=== PATIENT | male | born 1935 | race Caucasian/White ===

== ENCOUNTER 2016-11-18 18:38 | Emergency (ER) | payer OTHER ==
[~2016-11-18] VITALS: Ht 185.4 cm; Wt 98.0 kg
[~2016-11-18 18:38] MED LIST: ASPI81CH CHEW; LATA0.002 EACH EYE; LOSA100T3 PO; OMEP20TA PO
[2016-11-18 18:46] VITALS: BP 104/56; PULSE 65; RESP 16; TEMP 98.7; O2SAT 96
--- NOTE | 2016-11-18 19:23 | PD ---
HPI Chief Complaint: General Weakness Time Seen by Provider: 19:09 Travel History International Travel<30 days: No Contact w/Intl Traveler<30days: No Traveled to known affect area: No History of Present Illness HPI The patient is an 81-year-old male that has had progressive tightness and bilateral hamstrings for over a year. Despite PT prescribed by Dr. Mancini the patient has been getting worse and cannot straighten his legs. It is at the point now where he cannot walk for about 6 days. He was told by Dr. Mancini to go the emergency department. He saw a neurologist that wanted to do an MRI of the lumbosacral area but the patient has a metal plate in his foot put in 60 years ago and he cannot do an MRI. He has never had a CT of the lumbar spine. He denies any numbness, weakness in the legs. He has never seen an orthopedic physician. He states he had physical therapy once or twice a week and was given home exercises to do which he states he did. PFSH Past Medical History Arthritis: Yes Cardiovascular Problems: Yes (HTN) High Cholesterol: Yes Diminished Hearing: No Glaucoma: Yes Hypertension: Yes Tetanus Vaccination: < 5 Years Influenza Vaccination: Yes Past Surgical History Abdominal Surgery: Yes (Hernia, stomach) Social History Alcohol Use: No Tobacco Use: No Substance Use: No Allergies-Medications (Allergen,Severity, Reaction): Coded Allergies: Cephalexin (Verified Allergy, Severe, Hives, 11/18/16) Tramadol (Verified Allergy, Severe, Nausea/Vomiting, 11/18/16) HMG-CoA Reductase Inhibitors (Verified Allergy, Intermediate, MUSCLE CRAMPS, 11/18/16) Reported Meds & Prescriptions Reported Meds & Active Scripts Active Reported Latanoprost Opth Drops (Latanoprost) 0.005% Drops 1 Drop EACH EYE HS Refrigerate until opened. Losartan-Hydrochlorothiazide 100-12.5 Mg Tab 1 Tab PO DAILY Omeprazole 20 Mg Tab 20 Mg PO DAILY Aspirin 81 Mg Chew 81 Mg CHEW DAILY Review of Systems Except as stated in HPI: all other systems reviewed are Neg Physical Exam Narrative GENERAL: The patient is alert, oriented 3 in no apparent distress. His vital signs are normal. SKIN: Focused skin assessment warm/dry. HEAD: Atraumatic. Normocephalic. EYES: Pupils equal and round. No scleral icterus. No injection or drainage. ENT: No nasal bleeding or discharge. Mucous membranes pink and moist. NECK: Trachea midline. No JVD. CARDIOVASCULAR: Regular rate and rhythm. No murmur appreciated. RESPIRATORY: No accessory muscle use. Clear to auscultation. Breath sounds equal bilaterally. GASTROINTESTINAL: Abdomen soft, non-tender, nondistended. Hepatic and splenic margins not palpable. MUSCULOSKELETAL: No obvious deformities. No clubbing. No cyanosis. No edema. The patient lacks 30 and extension at the knees bilaterally. This is because of tight hamstring muscles. He has good capillary refill, pinprick and motor sensation of the feet. NEUROLOGICAL: Awake and alert. No obvious cranial nerve deficits. Motor grossly within normal limits. Normal speech. PSYCHIATRIC: Appropriate mood and affect; insight and judgment normal. Data Data Last Documented VS Vital Signs Date Time Temp Pulse Resp B/P Pulse Ox O2 Delivery O2 Flow Rate FiO2 11/18/16 21:35 59 16 132/49 97 Room Air 11/18/16 18:[address] Lumb Spine W/O Contrast (11/18/16 19:23) Complete Blood Count With Diff (11/18/16 19:25) Comprehensive Metabolic Panel (11/18/16 19:25) Urinalysis - C+S If Indicated (11/18/16 19:25) Place In Observation (11/18/16 ) Vital Signs (Adult) Q4H (11/18/16 21:25) Activity Oob With Assistance (11/18/16 21:25) Pump Servicer / Telemetry .CONTINUOUS (11/18/16 21:25) Diet Heart Healthy (11/19/16 Breakfast) Sodium Chloride 0.9% Flush (Ns Flush) (11/18/16 21:30) Sodium Chloride 0.9% Flush (Ns Flush) (11/19/16 09:00) Basic Metabolic Panel (Bmp) (11/19/16 06:00) Complete Blood Count With Diff (11/19/16 06:00) Pt Request For Service (11/18/16 21:25) Case Management Consult (11/18/16 21:25) Naloxone Inj (Narcan Inj) (11/18/16 21:30) Labs Laboratory Tests Test 11/18/16 11/18/16 19:35 20:45 White Blood Count 6.9 TH/MM3 Red Blood Count 4.06 MIL/MM3 Hemoglobin 12.6 GM/DL Hematocrit 37.0 % Mean Corpuscular Volume 91.2 FL Mean Corpuscular Hemoglobin 31.1 PG Mean Corpuscular Hemoglobin 34.1 % Concent Red Cell Distribution Width 14.3 % Platelet Count 191 TH/MM3 Mean Platelet Volume 6.9 FL Neutrophils (%) (Auto) 60.0 % Lymphocytes (%) (Auto) 22.7 % Monocytes (%) (Auto) 13.0 % Eosinophils (%) (Auto) 3.9 % Basophils (%) (Auto) 0.4 % Neutrophils # (Auto) 4.1 TH/MM3 Lymphocytes # (Auto) 1.6 TH/MM3 Monocytes # (Auto) 0.9 TH/MM3 Eosinophils # (Auto) 0.3 TH/MM3 Basophils # (Auto) 0.0 TH/MM3 CBC Comment DIFF FINAL Differential Comment Sodium Level 140 MEQ/L Potassium Level 4.2 MEQ/L Chloride Level 103 MEQ/L Carbon Dioxide Level 29.4 MEQ/L Anion Gap 8 MEQ/L Blood Urea Nitrogen 19 MG/DL Creatinine 0.80 MG/DL Estimat Glomerular Filtration 92 ML/MIN Rate Random Glucose 92 MG/DL Calcium Level 8.4 MG/DL Total Bilirubin 0.3 MG/DL Aspartate Amino Transf 21 U/L (AST/SGOT) Alanine Aminotransferase 23 U/L (ALT/SGPT) Alkaline Phosphatase 90 U/L Total Protein 6.4 GM/DL Albumin 3.3 GM/DL Urine Color YELLOW Urine Turbidity CLEAR Urine pH 5.5 Urine Specific [place] 1.018 Urine Protein NEG mg/dL Urine Glucose (UA) NEG mg/dL Urine Ketones NEG mg/dL Urine Occult Blood NEG Urine Nitrite NEG Urine Bilirubin NEG Urine Leukocyte Esterase NEG Urine RBC 0-2 /hpf Urine WBC 0-2 /hpf Urine Squamous Epithelial 0-5 /hpf Cells Urine Bacteria NONE /hpf Microscopic Urinalysis Comment CULT NOT INDICATED MDM Medical Decision Making Medical Screen Exam Complete: Yes Emergency Medical Condition: Yes Medical Record Reviewed: Yes Interpretation(s) The CT of the lumbar spine shows scoliosis and multilevel lumbar spine degenerative changes which are severe. They are associated with foraminal and spinal stenosis at all levels but, according to the radiologist, they appear chronic and no acute disc herniation is noted. There is no fracture or acute malalignment. The CBC shows a hemoglobin of 12.6 and hematocrit of 37.0 but is otherwise unremarkable. The complete metabolic profile shows a BUN of 19 and calcium 8.4 and albumin 3.3 but is otherwise normal. The urinalysis is normal. Differential Diagnosis Chronic tightening of hamstrings, herniated nucleus pulposus, electrolyte disorder Narrative Course The patient has chronic tightening of his hamstrings, so severe that he cannot walk. He cannot get to the bathroom and cannot ambulate at home. Apparently, he has failed physical therapy at his hamstrings actually got tighter when he was having physical therapy. He has never seen an orthopedic physician. I discussed the patient with Dr. Yuan and we are okay with admitting this patient to get orthopedic/rehabilitation medicine consults. The patient did not want to be admitted, he states he is okay with going home and using a wheelchair to get around his home. He is told to have Dr. Mancini get orthopedic/ rehabilitation medicine consultants to see if they can stretch the hamstrings are offer possible myofascial release so that he can straighten out his legs. Diagnosis Primary Impression: Inability to ambulate due to knee Additional Impression: Hamstring tightness of both lower extremities Perez Blanchard MD Nov 18, 2016 19:23
[2016-11-18 19:40] LABS: AUTOMATED NEUTROPHIL # 4.1 TH/MM3 (1.8-7.7); BASOPHIL % 0.4 % (0.0-2.0); EOSINOPHIL # 0.3 TH/MM3 (0-0.4); EOSINOPHIL % 3.9 % (0.0-4.0); HEMO FLAGS DIFF FINAL; LYMPH % 22.7 % (9.0-44.0); LYMPHOCYTE # 1.6 TH/MM3 (1.0-4.8); MEAN CELL VOLUME 91.2 FL (80.0-100.0); MEAN CORPUSCULAR HEMOGLOBIN 31.1 PG (27.0-34.0); MEAN CORPUSCULAR HGB CONC 34.1 % (32.0-36.0); PLATELET COUNT 191 TH/MM3 (150-450); RED BLOOD COUNT 4.06 MIL/MM3 (4.50-5.90); RED CELL DISTRIBUTION WIDTH 14.3 % (11.6-17.2); WHITE BLOOD COUNT 6.9 TH/MM3 (4.0-11.0)
[2016-11-18 19:48] LABS: CHLORIDE 103 MEQ/L (98-107); POTASSIUM 4.2 MEQ/L (3.5-5.1); SODIUM (NA) 140 MEQ/L (136-145)
[2016-11-18 19:52] LABS: ANION GAP 8 MEQ/L (5-15); BICARBONATE 29.4 MEQ/L (21.0-32.0); BLOOD UREA NITROGEN 19 MG/DL (7-18)
[2016-11-18 19:55] LABS: ALT (GPT) 23 U/L (12-78); AST (GOT) 21 U/L (15-37); GLOMERULAR FILTRATION RATE 92 ML/MIN (>89)
[2016-11-18 19:56] LABS: TOTAL BILIRUBIN ADULT 0.3 MG/DL (0.2-1.0)
[2016-11-18 19:58] LABS: ALKALINE PHOSPHATASE 90 U/L (45-117)
[2016-11-18 20:50] LABS: BLOOD, URINE NEG (NEG); GLUCOSE,URINE NEG (NEG); KETONE, URINE NEG (NEG); NITRITE,URINE NEG (NEG); PH, URINE 5.5 (5.0-8.5)
[2016-11-18 20:55] LABS: COMMENT (UR) CULT NOT INDICATED; CULTURE IF INDICATED CULT NOT INDICATED; RBC, URINE 0-2 /hpf (0-3); SQUAMOUS EPITHELIAL CELL URINE 0-5 /hpf (0-5); URINE COLOR YELLOW (YELLW/STRAW); WBC, URINE 0-2 /hpf (0-5)
--- NOTE | 2016-11-18 20:57 | RADHPO ---
EXAM DATE/TIME: 11/18/2016 20:08 [facility] COMPARISON: No previous studies available for comparison. INDICATIONS : Weakness in bilateral lower extremities. RADIATION DOSE: 40.08 CTDIvol (mGy) MEDICAL HISTORY : Hypertension. SURGICAL HISTORY : None. ENCOUNTER: Initial ACUITY: 1 day PAIN SCALE: 2/10 LOCATION: [facility] TECHNIQUE: Volumetric scanning of the lumbar spine was performed. Multiplanar reconstructions in the sagittal, coronal and oblique axial planes were performed. Using automated exposure control and adjustment of the mA and/or kV according to patient size, radiation dose was kept as low as reasonably achievable t o obtain optimal diagnostic quality images. FINDINGS: There is moderate dextroconvex curvature of the lumbar spine centered around L4. No fracture or acute appearing malalignment demonstrated. T12-L1: Severe disc space narrowing with broad disc osteophyte complex and moderate bilateral facet osteoarth ritis. There is moderate bilateral foraminal stenosis. L1-L2: Severe disc space narrowing and vacuum phenomena. Circumferential osseous ridging and small, broad/di ffuse but especially lateral disc protrusion. There is severe bilateral foraminal stenosis. L2-L3: Severe disc space narrowing with vacuum phenomena. Diffuse osseous ridging and severe bilateral facet osteoarthritis. There is moderate to severe right and severe left foraminal stenosis. There is moder ate spinal stenosis. L3-L4: Severe disc space narrowing with vacuum phenomena and diffuse disc osteophyte complex with severe marcy ateral facet osteoarthritis. There is moderate to severe right and severe left foraminal stenosis. Th ere is moderate to severe spinal stenosis. L4-L5: Moderate to severe disc space narrowing with vacuum phenomena, especially towards the left. Diffuse d isc osteophyte complex and severe bilateral facet osteoarthritis. There is moderate to severe right a nd severe left foraminal stenosis. There is moderate foraminal stenosis, left lateral recess more so than right. The left L5 nerve root appears swollen. L5-S1: Moderate disc space narrowing with vacuum phenomena. A couple millimeters of degenerative anterolisth esis are noted. There is a small, broad disc protrusion that appears chronic. There is severe right a nd moderate to severe left foraminal stenosis. CONCLUSION: Scoliosis and multilevel lumbar spine degenerative changes as above. Although quite severe and with a ssociated foraminal and spinal stenosis at essentially all levels, the findings appear chronic and I don't clearly see an acute disc herniation. Also no evidence of fracture or acute malalignment. Ken Mark MD on November 18, 2016 at 20:48 Board Certified Radiologist. This report was verified electronically.
[2016-11-18] MEDS ORDERED: SODIUM CHLORIDE 0.9% FLUSH 10 ML FLUSH IV FLUSH PRN (21:30)
[2016-11-18] MEDS ORDERED: NALOXONE HCL 0.4 MG/ML AMP IV PRN (21:30)
[2016-11-18 21:35] VITALS: BP 132/49; PULSE 59; RESP 16; O2SAT 97
[2016-11-19] MEDS ORDERED: SODIUM CHLORIDE 0.9% FLUSH 10 ML FLUSH IV FLUSH SCH (09:00)
== END 2016-11-18 22:00 | disposition home or self-care (01) ==
LOC: PHED 18:38
DX: R26.89 Other abnormalities of gait and mobility (principal); M62.451 Contracture of muscle, right thigh; M62.452 Contracture of muscle, left thigh
CPT/HCPCS: 72131; 80053; 81001; 85025

== ENCOUNTER → 2017-09-23 | Outpatient (CLI) | payer OTHER ==
[~2017-09-23] MED LIST changes: +ASPI-516 CHEW; -ASPI81CH CHEW; -OMEP20TA PO; +OMEP20TA93 PO
--- NOTE | 2017-09-23 10:03 | RADRPT ---
EXAM DATE/TIME: 09/23/2017 00:00 [facility] COMPARISON: No previous studies available for comparison. INDICATIONS : Coughing while drinking from a cup. FLUORO TIME: 1.4 minutes IMAGE COUNT: 0 CONTRAST: Dose as prescribed by speech pathologist. MEDICAL HISTORY : Hiatal hernia. SURGICAL HISTORY : hiatal hernia repair ENCOUNTER: Initial ACUITY: 2 months PAIN SCORE: 0/10 LOCATION: esophagus FINDINGS: A modified barium swallow was performed with speech pathology. Patient was given a variety of liquids to swallow. The swallowing mechanism is intact without evidence of penetration or aspiration. For a full detailed report, see report by the speech pathologist. CONCLUSION: Intact swelling without evidence of aspiration. Vic Betancourt MD on September 23, 2017 at 10:01 Board Certified Radiologist. This report was verified electronically.
== END ==
LOC: HRAD 09:28
PROVIDERS: ATTEND Internal Medicine Gastroenterology
DX: R13.10 Dysphagia, unspecified (principal)
CPT/HCPCS: 74230; 92611; G8996; G8997; G8998

== ENCOUNTER 2018-01-17 12:34 | Day surgery (SDC) | payer OTHER ==
[2018-01-17 13:30] VITALS: BP 141/67; PULSE 62; RESP 16; TEMP 98.4; O2SAT 98
[2018-01-17 14:39] VITALS: BP 128/68; PULSE 58; RESP 16; O2SAT 96
[2018-01-17] MEDS ORDERED: LIDOCAINE HCL 1% PF 30 ML VIAL ONE (15:26)
--- NOTE | 2018-01-18 08:29 | RADRPT ---
EXAM DATE: 01/17/2018 3:01 PM EDT AGE/SEX: 82 years / Male INDICATIONS: Right parotid gland mass. CLINICAL DATA: This is the patient's initial encounter. Patient reports that signs and symptoms have been present for 1 week and indicates a pain score of 0/10. MEDICAL/SURGICAL HISTORY: Hypercholesterolemia. Hypertension. Arthritis. Glaucoma. . Hernia repair. Left ankle repair. COMPARISON: No prior exams available for comparison. ORGAN: Right Neck. SPECIMEN(S): Two core specimen(s) submitted for pathologic evaluation. DEVICE(S): 18 gauge Temno needle Post procedure scanning reveals no hematoma or other complication. The possibility does exist that the tissue obtained will be non-diagnostic. If the sample is non-diag nostic, a repeat biopsy or surgical biopsy may need to be performed. TECHNIQUE: 1. Ultrasound guidance for needle biopsy. 2. Needle biopsy. 3. 4. . . The risks, benefits and alternatives to the procedure were explained and verbal and written consent w as obtained. The site was prepped in sterile fashion. Full sterile technique was used, including ca p, mask, sterile gloves and gown and a large sterile sheet. Hand hygiene and 2% chlorhexidine and/or betadine/alcohol prep was utilized per protocol for cutaneous antisepsis. The skin and subcutaneous tissues were infiltrated with local anesthetic solution. Sterile gel and sterile probe cover were u tilized for ultrasound guidance. With the patient on the ultrasound table, images were obtained. A needle was advanced into the identified target and the number of specimens as above obtained and allen bmitted for pathologic evaluation. The patient tolerated the procedure well and left the ultrasound suite in stable condition. FINDINGS: Successful ultrasound-guided 18-gauge core biopsies of right parotid gland mass. CONCLUSION: 1. Successful ultrasound-guided 18-gauge core biopsies of right parotid gland mass. Electronically signed by: Salas Epstein MD 01/18/2018 8:27 AM EDT
== END 2018-01-17 14:30 | disposition home or self-care (01) ==
LOC: HRAD 12:34 → HRIP 12:34 → HRAD 14:30
PROVIDERS: ATTEND Radiology Body Imaging
DX: D11.0 Benign neoplasm of parotid gland (principal); I10 Essential (primary) hypertension; G47.30 Sleep apnea, unspecified; E78.5 Hyperlipidemia, unspecified
CPT/HCPCS: 42400; 76942; 88184; 88185; 88305; 88341; 88342